=== PATIENT | male | born 1985 | race Caucasian/White ===

== ENCOUNTER 2018-08-30 16:36 | Emergency (ER) | payer SELFPAY ==
[2018-08-30] MEDS ORDERED: NS 1,000 ML IV ONE ×2 (17:57→18:05)
[2018-08-30] MEDS ORDERED: HYDROmorphONE/DILAUDID 2 MG/ML INJ IVP ONE (18:05)
[2018-08-30] MEDS ORDERED: ONDANSETRON 4 MG/2 ML VIAL IVP ONE (18:15)
[2018-08-30 18:19] LABS: PLATELET COUNT 328 10^3/uL (150-400)
[2018-08-30 20:50] VITALS: BP 135/79
--- NOTE | 2018-08-30 21:15 | EDPHY ---
H & P Stated Complaint: N/V, abdo pain since sunday. - Personal History Current Tetanus Diphtheria and Acellular Pertussis (TDAP): Yes Tetanus Vaccine Date: 09/03/16 - Medical/Surgical History Hx Asthma: No Hx Chronic Respiratory Disease: No Hx Diabetes: No Hx Cardiac Disease: No Hx Renal Disease: No Hx Cirrhosis: No Hx Alcoholism: Yes Hx HIV/AIDS: No Hx Splenectomy or Spleen Trauma: No Other PMH: Previous ETOH withdrawl, R clavicle repair. IBS - Social History Smoking Status: Current every day smoker Time Seen by Provider: 08/30/18 17:39 HPI/ROS: Chief complaint: Nausea and vomiting with abdominal pain History of present illness: This is a 32-year-old male who presents to the emergency department for evaluation of nausea and vomiting with associated abdominal pain. Symptoms began 2 days ago. He believes this is an episode of cyclic vomiting. He has had multiple episodes in the past. He believes they are caused from daily marijuana use. He has tried to treat himself at home with rest and hydration but symptoms persist. He denies fevers. He denies constipation or diarrhea. He denies blood in the stool. He denies urinary symptoms. Review of systems: A 10 point review of systems was obtained and other than described above was negative ([place]) - Physical Exam Exam: General Appearance: Alert, nontoxic. Eyes: Pupils equal and round no pallor or injection. ENT, Mouth: Mucous membranes moist. Respiratory: There are no retractions, lungs are clear to auscultation. Cardiovascular: Regular rate and rhythm. Gastrointestinal: Bowel sounds are normal. Abdomen is soft, nondistended and nontender. Neurological: Alert and oriented x4. Strength and sensation intact and symmetrical. Skin: Warm and dry, no rashes. Musculoskeletal: Neck is supple non tender. Extremities are symmetrical, full range of motion. Psychiatric: Patient is oriented X 3, there is no agitation. ([place]) Constitutional: Initial Vital Signs Temperature (C) 36.8 C 08/30/18 16:44 Heart Rate 107 H 08/30/18 16:44 Respiratory Rate 16 08/30/18 16:44 Blood Pressure 134/99 H 08/30/18 16:44 O2 Sat (%) 96 08/30/18 16:44 O2 Delivery Mode Room Air Allergies/Adverse Reactions: No Known Allergies Allergy (Verified 10/17/16 06:44) Home Medications: Medication Instructions Recorded NK [No Known Home Meds] 08/30/18 Medical Decision Making ED Course/Re-evaluation: Patient seen under the supervision of my secondary supervising physician Dr. Leanne Saab. Patient presents for nausea and vomiting with associated abdominal discomfort. He has a history of cyclic vomiting syndrome that he believes is secondary to daily marijuana use. He is nontoxic. I performed serial abdominal exams which have remained benign throughout his stay in the emergency department including prior to discharge. He is IV hydrated with 2 L of normal saline, treated with Zofran for nausea and vomiting and Dilaudid for abdominal discomfort. On re-evaluation he states he is feeling much better. We did discussed pursuing further evaluation of his symptoms including a CT scan of the abdomen/pelvis to ensure no other underlying pathology, he has declined. He is tolerating oral challenges without difficulty. He will be discharged home with a prepack of Zofran ODT. Home care is discussed. I have asked him to follow up with a primary care doctor for recheck including recheck of his creatinine. Strict return precautions were given. He has voiced understanding and agreement with plan. ([place]) The patient was evaluated and managed by the physician entry level assistant manager. I have reviewed this chart and I agree with the findings and plan of care as documented , as indicated by my signature. I am the secondary supervising physician. ( Leanne Saab) Differential Diagnosis: Included but not limited to cyclic vomiting syndrome, gastritis, gastroenteritis , colitis, appendicitis ([place]) - Data Points Laboratory Results: Laboratory Results 08/30/18 17:50 08/30/18 17:50 Medications Given: Discontinued Medications Hydromorphone HCl (Dilaudid) 0.5 mg IVP EDNOW ONE Stop: 08/30/18 18:06 Last Admin: 08/30/18 18:27 Dose: 0.5 mg Sodium Chloride (Ns) 1,000 mls @ 0 mls/hr IV ONCE ONE PRN Reason: Wide Open Stop: 08/30/18 17:58 Last Admin: 08/30/18 17:57 Dose: 1,000 mls Sodium Chloride (Ns) 1,000 mls @ 0 mls/hr IV EDNOW ONE; Wide Open PRN Reason: Protocol Stop: 08/30/18 18:06 Last Admin: 08/30/18 19:02 Dose: 1,000 mls Ondansetron HCl (Zofran) 4 mg IVP EDNOW ONE Stop: 08/30/18 18:16 Last Admin: 08/30/18 18:27 Dose: 4 mg Ondansetron HCl (Zofran Odt 4 Mg Prepack#2) 1 btl TAKEHOME EDNOW ONE Stop: 08/30/18 21:17 Last Admin: 08/30/18 21:23 Dose: 1 btl Departure - Departure Disposition: Home, Routine, Self-Care Clinical Impression: Nausea & vomiting Qualifiers: Vomiting type: unspecified Vomiting Intractability: non-intractable Qualified Code(s): R11.2 - Nausea with vomiting, unspecified Condition: Good Instructions: Ondansetron (By mouth), Acute Nausea and Vomiting (ED) Additional Instructions: Follow-up with a primary care doctor on Sunday for recheck If symptoms worsen or new symptoms develop return to the emergency room for recheck Referrals: NONE *PRIMARY CARE P,. [Primary Care Provider] - As per Instructions [facility],. [Clinic] - As per Instructions
[2018-08-30] MEDS ORDERED: ONDANSETRON 4MG PREPACK#2 BTL TAKEHOME ONE (21:16)
== END 2018-08-30 21:29 | disposition home or self-care (01) ==
DX: R11.2 Nausea with vomiting, unspecified (principal); E86.9 Volume depletion, unspecified; F17.200 Nicotine dependence, unspecified, uncomplicated
CPT/HCPCS: 96374; J1170; J2405